=== PATIENT | female | born 1935 | race Caucasian/White ===

== ENCOUNTER 2023-06-12 11:29 | Emergency (ER) | payer MEDICARE, BC, SELFPAY ==
[2023-06-12 11:40] VITALS: BP 176/74
[2023-06-12 11:41] VITALS: BP 176/74; PULSE 86; TEMP 37.1; O2SAT 95; O2SAT 96; BMI 24.0
[2023-06-12 11:50] VITALS: PULSE 86; O2SAT 97
--- NOTE | 2023-06-12 11:52 | ED.HEATRA1 ---
HPI HPI - Head Injury General Chief complaint: Head Injury Stated complaint: HEAD INJURY/ FALL Time Seen by Provider: 06/12/23 11:41 Source: patient and family Mode of arrival: Wheelchair Limitations: no limitations History of Present Illness HPI Narrative: 87-year-old female presents to the emergency department for injury to her head. She apparently fell last night and likely hit the back of her head on the wall in her bedroom causing a dent into the drywall. There is been no vomiting or unusual behavior. She has some degree of dementia and is unable to provide any history. She does not seem to have any other complaints. She is accompanied by her son who gives all of the history. Related Data Home Medications ?Medication ?Instructions ?Recorded ?Confirmed allopurinol 100 mg tablet 100 mg PO DAILY 08/23/22 10/03/22 amitriptyline 25 mg tablet 25 mg PO DAILY 08/23/22 10/03/22 furosemide 40 mg tablet 40 mg PO BID 08/23/22 10/03/22 levothyroxine 75 mcg tablet 75 mcg PO DAILY 08/23/22 10/31/22 (Euthyrox) potassium chloride 10 mEq 20 meq PO BID 08/23/22 10/31/22 tablet,extended release temazepam 30 mg capsule mg PO DAILY 08/23/22 tramadol 50 mg tablet 50 mg PO QID 08/23/22 10/31/22 diazepam 5 mg tablet (Valium) 5 mg PO DAILY 10/31/22 10/31/22 Allergies Allergy/AdvReac Type Severity Reaction Status Date / Time No Known Drug Allergies Allergy Verified 02/09/23 13:27 Opioid HPI Opioid Management Most Recent Pain and Opioid Data: Last Pain Scale 5 10/31/22 07:45 Review of Systems ROS Narrative Unobtainable, dementia, age PFSH PFSH Medical History Chronic neck pain ?M54.2 - Cervicalgia (ICD-10) ?G89.29 - Other chronic pain (ICD-10) Hypothyroid ?E03.9 - Hypothyroidism, unspecified (ICD-10) Kidney function abnormal ?N28.9 - Disorder of kidney and ureter, unspecified (ICD-10) Low back pain ?M54.50 - Low back pain, unspecified (ICD-10) Neck pain ?M54.2 - Cervicalgia (ICD-10) Osteoarthritis ?M19.90 - Unspecified osteoarthritis, unspecified site (ICD-10) Upper back pain ?M54.9 - Dorsalgia, unspecified (ICD-10) Surgical History H/O lumbosacral spine surgery ?Z98.890 - Other specified postprocedural states (ICD-10) Hx of total knee arthroplasty ?Z96.659 - Presence of unspecified artificial knee joint (ICD-10) Exam Narrative Exam Narrative: Nurses note and vital signs reviewed and patient is not hypoxic. General: The patient appears in no apparent distress. She appears frail. Skin: Warm, dry, no pallor noted. There is no rash noted. Head: Normocephalic, atraumatic. No hematoma or abrasion is noted. Cervical spine nontender. Eye: Normal conjunctiva, no drainage Ears, Nose, Mouth, and Throat: oral mucosa is moist. Nares patent. Cardiovascular: Regular Rate and Rhythm Respiratory: Patient is in no distress, no accessory muscle use, lungs are clear to auscultation, no wheezing, rales or rhonchi Back: non-tender, no bruise or abrasion. No tenderness along the cervical, thoracic, or lumbar spines. GI: Soft and nontender Musculoskeletal: No palpable tenderness to extremities. All joints have appropriate range of motion Neurological: Awake and alert Psychiatric: Cooperative Constitutional Vital Signs, click to edit/add: Last Vital Signs Temp 98.7 F 06/12/23 11:41 Pulse 86 06/12/23 11:41 Resp 18 06/12/23 11:41 BP 176/74 H 06/12/23 11:41 Pulse Ox 95 06/12/23 11:41 O2 Del Method Room Air 06/12/23 11:41 Course Vital Signs Vital signs: Vital Signs Temperature 98.7 F 06/12/23 11:41 Pulse Rate 86 06/12/23 11:41 Respiratory Rate 18 06/12/23 11:41 Blood Pressure 176/74 H 06/12/23 11:41 Pulse Oximetry 95 06/12/23 11:41 Oxygen Delivery Method Room Air 06/12/23 11:41 Temperature 98.7 F 06/12/23 11:41 Pulse Rate 86 05/06/24 11:41 Respiratory Rate 18 06/12/23 11:41 Blood Pressure 176/74 H 06/12/23 11:41 Pulse Oximetry 95 06/12/23 11:41 Oxygen Delivery Method Room Air 06/12/23 11:41 MDM - Head Injury MDM Narrative Medical decision making narrative: CT brain is negative per radiologist. Findings are discussed with the patient's son and she is able to be discharged home. Differential Diagnosis Differential diagnosis: Likely epidural hematoma, closed head injury, subarachnoid hematoma and subdural hematoma Imaging Data CT scan - head: Radiologist's impression: ITS Impressions Head CT 06/12/23 12:08 IMPRESSION: No acute intracranial process. Similar senescent change. Electronically authenticated by: CATHY MARLOW Date: 06/12/2023 12:20 Discharge Plan Discharge Stand Alone Forms: Portal Instructions Chief Complaint: Head Injury Clinical Impression: Contusion of head Patient Disposition: Home, Self-Care Time of Disposition Decision: 12:32 Condition: Good Mode of Transportation: Private Vehicle Prescriptions / Home Meds: No Action levothyroxine [Euthyrox] 75 mcg tablet 75 mcg PO DAILY potassium chloride 10 mEq tablet extended release 20 meq PO BID amitriptyline 25 mg tablet 25 mg PO DAILY tramadol 50 mg tablet 50 mg PO QID furosemide 40 mg tablet 40 mg PO BID temazepam 30 mg capsule PO DAILY allopurinol 100 mg tablet 100 mg PO DAILY diazepam [Valium] 5 mg tablet 5 mg PO DAILY Patient Comments: for pain procedure Print Language: [place] Instructions: Contusion in Adults (ED) Referrals: Melissa Argueta [Primary Care Provider] - 1 week
--- NOTE | 2023-06-12 12:03 | PC.NURSE ---
no hematoma found to head neck or face, pt alert and appropriate, Son at bedside states pt is at her baseline
--- NOTE | 2023-06-12 12:08 | CT_ITS ---
The [address] [address] Patient Name: ROEL DACOSTA MRN: [facility]:[id number] date: 1935 Sex: F Assigned Patient Location: ED.MAIN Current Patient Location: ER Accession/Order Number: [id number] Exam Date: 06/12/2023 12:02 Report Date: 06/12/2023 12:20 At the request of: HONG ROSADO Procedure: CT head/brain wo con EXAM: CT head/brain wo con HISTORY: Fall, hit head COMPARISON: CT head 09/15/2022. TECHNIQUE: Axial noncontrast CT imaging of the head was performed with coronal and sagittal reformats. This CT exam was performed using one or more of the following dose reduction techniques: Automated exposure control, adjustment of the MA and/or kV according to patient size, or use of iterative reconstruction technique. FINDINGS: Calvarium/skull base: No evidence of acute fracture or destructive lesion. Mastoids and middle ears demonstrate no substantial mucosal disease. Bilateral [place] ocular lens replacements. Paranasal sinuses: No air fluid levels. Brain: No acute intracranial hemorrhage. No acute large vascular territory infarct. Similar [id number] parenchymal volume loss. Stable mild patchy hypoattenuation involving supratentorial white matter which most commonly relates to sequela small vessel disease. No mass lesion or mass effect. No hydrocephalus. CT/CT head/brain wo con IMPRESSION: No acute intracranial process. Similar senescent change. Electronically authenticated by: CATHY MARLOW Date: 06/12/2023 12:20
[2023-06-12 12:10] VITALS: PULSE 83
[2023-06-12 12:30] VITALS: PULSE 80
[2023-06-12 12:32] VITALS: BP 160/73
== END 2023-06-12 12:56 | disposition home or self-care (01) ==
PROVIDERS: Emergency Provider Emergency Medicine
DX: S00.93XA Contusion of unspecified part of head, initial encounter (principal); W19.XXXA Unspecified fall, initial encounter; E03.9 Hypothyroidism, unspecified; M19.90 Unspecified osteoarthritis, unspecified site; Z98.890 Other specified postprocedural states; Z96.659 Presence of unspecified artificial knee joint; Z79.890 Hormone replacement therapy; Z79.899 Other long term (current) drug therapy
CPT/HCPCS: 70450; 99284

== ENCOUNTER 2023-06-14 13:04 | Outpatient (OUT) | payer MEDICARE, BC, SELFPAY ==
--- NOTE | 2023-06-14 14:05 | P.CN_ITS ---
Consult Note: HPI Data of Consult Patient: known to practice within the last 3 years Requesting Physician: Mariana Camara NP Primary Care Provider: Melissa Argueta Consult Narrative Reason for consult: F/u Narrative: Stacey Ferrer a pleasant 87 year old female presents for evaluation and management of chronic low back and generalized OA pain, as well as bilateral knee pain post replacement. Today rating pain 8/10 in bilateral knees, low back 4/10. Patient recently switched primary care providers and patient/son would like any other non opioid pain medication recommendations. patient has an extensive fall history, without injury, and there are concerns for polypharmacy. Patients PCP would like to wean tramadol as they are concerned with falls, patient is on chronic benzodiazepines and is a NNCP at our office. Unfortunately her insurance will not cover genicular RFAs, patient has had bilateral knee replacements and continues to have moderate to severe pain cc:: CC: Mariana Camara NP Review of Systems ROS Status of ROS 10 or more systems reviewed and unremark able except as noted in history and below Musculoskeletal Reports: extremity pain and joint pain PFSH PFSH Medical History Chronic neck pain ?M54.2 - Cervicalgia (ICD-10) ?G89.29 - Other chronic pain (ICD-10) Hypothyroid ?E03.9 - Hypothyroidism, unspecified (ICD-10) Kidney function abnormal ?N28.9 - Disorder of kidney and ureter, unspecified (ICD-10) Low back pain ?M54.50 - Low back pain, unspecified (ICD-10) Neck pain ?M54.2 - Cervicalgia (ICD-10) Osteoarthritis ?M19.90 - Unspecified osteoarthritis, unspecified site (ICD-10) Upper back pain ?M54.9 - Dorsalgia, unspecified (ICD-10) Surgical History H/O lumbosacral spine surgery ?Z98.890 - Other specified postprocedural states (ICD-10) Hx of total knee arthroplasty ?Z96.659 - Presence of unspecified artificial knee joint (ICD-10) Meds Home Medications and Allergies Home Medications ?Medication ?Instructions ?Recorded ?Confirmed ?Type allopurinol 100 mg tablet 100 mg PO DAILY 08/23/22 10/03/22 History amitriptyline 25 mg tablet 25 mg PO DAILY 08/23/22 10/03/22 History furosemide 40 mg tablet 40 mg PO BID 08/23/22 10/03/22 History levothyroxine 75 mcg tablet 75 mcg PO DAILY 08/23/22 10/31/22 History (Euthyrox) potassium chloride 10 mEq 20 meq PO BID 08/23/22 10/31/22 History tablet,extended release temazepam 30 mg capsule mg PO DAILY 08/23/22 History tramadol 50 mg tablet 50 mg PO QID 08/23/22 10/31/22 History diazepam 5 mg tablet (Valium) 5 mg PO DAILY 10/31/22 10/31/22 History glucosamine HCl 1,500 mg tablet 1,500 mg PO DAILY 06/14/23 06/14/23 History multivitamin 1 tab PO DAILY 06/14/23 06/14/23 History omega-3 fatty acids 2,500 mg PO DAILY 06/14/23 06/14/23 History polyethylene glycol 3350 17 17 g PO DAILY 06/14/23 06/14/23 History gram/dose oral powder (Miralax) vit C 250 mg-vit E 200 unit-zinc 1 tab PO BID 06/14/23 06/14/23 History 12.5 mg-copper 1 gm-jdy-skoogz tablet (ICaps AREDS2 (copper citrate)) Allergies Allergy/AdvReac Type Severity Reaction Status Date / Time No Known Drug Allergies Allergy Verified 02/09/23 13:27 Exam Constitutional Documenting provider has reviewed patient's vital signs: yes Common normals: no apparent distress, oriented x3, healthy appearing, alert and well nourished General appearance: cooperative [facility] Common normals: normocephalic, hearing grossly normal bilaterally and moist oral mucous membranes Head and scalp: normocephalic Eye Common normals: PERRL Pupil: PERRL Neck & C-Spine Common normals: full ROM General: normal visual inspection Cervical spine: pain with cervical ROM Chest Common normals: inspection of chest normal Respiratory Common normals: normal respiratory effort, no retractions and no use of accessory muscles Back & Pelvis Lumbar spine/lower back: ROM limited, pain with ROM and straight leg raise negative bilaterally Other: predominately axial back pain without radiculopathy positive facet loading bilaterally Extremity Common normals: normal to inspection and full ROM Right lower extremity: knee joint Left lower extremity: knee joint Other: bilateral knee pain, pain increased with ROM and weight bearing. Neuro Common normals: oriented x3, CN's II-XII intact bilaterally, moves all extremities, no focal motor deficits, no sensory deficits noted and deep tendon reflexes 2+ bilaterally Sensorium/orientation: alert Gait (neuro): antalgic and assistive device used (wheelchair due to tremors today) Motor exam: strength 5/5 throughout and no movement abnormalities noted Psych Common normals: mental status grossly normal, thought process normal, cooperative, affect normal, speech normal and activity/motor behavior normal Speech: normal speech Thought process: normal thought process Results Additional Findings Additional findings: If on a controlled substance or opioids, I have checked an [place] report on this patient and there are no aberrancies noted in the prescribing history.??If on a controlled substance or opioid a drug screen was completed and reviewed within the last year, and if there has not been a drug screen completed we ordered one today to monitor higher risk, state monitored pain medication use. As part of providing excellent, safe, comprehensive care, the following was completed at our patient's visit: 1. A medication reconciliation and review to ensure accurate knowledge of current/active medications, including asking our patients to inform us about any [id number] medications or herbal remedies/nutritional supplements/alternative remedies. 2. A review to specifically ensure our patients have had annual screening for screening for depression, screening for tobacco use, and screening for unhealthy alcohol use. For concerning screenings had a discussion with the patient, provided patient education, and recommended follow-up with primary care provider when appropriate. If patient noted with a risk of falling, they received education on strength, gait, and balance training to prevent future risk of falling. Assessment and Plan Assessment and Plan (1) Frequent falls: (2) Imbalance: (3) Chronic knee pain after total replacement of both knee joints: (4) Bilateral knee pain: (5) Weakness: (6) Lumbar postlaminectomy syndrome: (7) Lumbar spondylosis: Plan PT/OT for imbalance, frequent falls. goals are to improve strength/balance and improve ability to complete ADLs continue medications through PCP unfortunately insurance would not cover genicular RFAs or transdermal therapeutics
== END 2023-06-14 13:05 | disposition home or self-care (01) ==
LOC: PM 13:06
PROVIDERS: Visit Provider Nurse Practitioner
DX: R26.89 Other abnormalities of gait and mobility (principal); M25.561 Pain in right knee; M25.562 Pain in left knee; R53.1 Weakness; M96.1 Postlaminectomy syndrome, not elsewhere classified; M47.816 Spondylosis without myelopathy or radiculopathy, lumbar region
CPT/HCPCS: G0463